=== PATIENT | female | born 1995 | race Hispanic/Latino ===

== ENCOUNTER 2022-07-30 09:42 | Emergency (ER) | payer MEDICAID ==
[~2022-07-30] VITALS: Ht 167.6 cm; Wt 86.2 kg
[2022-07-30 09:46] VITALS: BP 100/70
[2022-07-30] MEDS ORDERED: DIPH1POW20 PO (11:23)
[2022-07-30] MEDS ORDERED: IBUP-2070 PO (11:23)
== END 2022-07-30 11:42 | disposition home or self-care (01) ==
LOC: EDH 09:42
DX: B34.9 Viral infection, unspecified (principal); Z20.822 Contact with and (suspected) exposure to COVID-19; E11.9 Type 2 diabetes mellitus without complications; Z88.0 Allergy status to penicillin; Z90.49 Acquired absence of other specified parts of digestive tract; Z90.89 Acquired absence of other organs; Z98.890 Other specified postprocedural states
CPT/HCPCS: 99283; 87635; 87880; 87804 ×2; C9803